=== PATIENT | male | born 1995 | race Caucasian/White ===

== ENCOUNTER 2017-01-01 05:01 | Emergency (ER) | payer BC ==
[~2017-01-01 05:01] MED LIST: BACITRACIN30 GM TOP; BENTYL10 MG PO; NO MEDICATIONS; PHENERGAN25 M1 PO; PRILOSEC20 M1 PO; ZOFRANODT PO
== END 2017-01-01 05:05 | disposition left against medical advice (07) ==
LOC: CED 05:01
DX: Z53.21 Procedure and treatment not carried out due to patient leaving prior to being seen by health care provider (principal)

== ENCOUNTER 2017-03-02 21:56 | Emergency (ER) | payer BC ==
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
== END 2017-03-02 22:33 | disposition home or self-care (01) ==
LOC: SED 21:56
DX: S62.625A Displaced fracture of middle phalanx of left ring finger, initial encounter for closed fracture (principal); F17.200 Nicotine dependence, unspecified, uncomplicated; Y04.2XXA Assault by strike against or bumped into by another person, initial encounter; Y92.9 Unspecified place or not applicable
CPT/HCPCS: 29125; 73130; 99283

== ENCOUNTER 2017-03-29 08:24 | Emergency (ER) | payer BC ==
--- NOTE | ~2017-03-29 | CR90 ---
[facility] A Service of [facility] RADIOLOGY TEXT RESULTS PATIENT: TIFFANY ROCHE LOCATION: [facility] : 93 UNIT #: [id number] AGE: [address]: Juanita Pillai MD SEX: M ORDER DR: [id number] [facility] [address] [place], [place] [address] [id number] E MR#: [id number] Acc #: [id number] NAME: TIFFANY ROCHE. : 1995 SEX: M STUDY DATE/TIME: 03/29/2017 9:27 UNIT: [facility] ROOM: STUDY DESCRIPTION: CR Elbow 2 View Lt Attending Physician: Juanita Pillai M.D. Ordering Physician: Juanita Pillai M.D. Primary Care Physician: Primary Care Physician No MEDICAL IMAGING REPORT This report is preliminary unless electronic signature is present EXAM Left [facility]. Patient fell this morning. FINDINGS AP and lateral examination of the elbow shows satisfactory articulation of the humerus with the proximal radius and ulna. There is no identifiable fracture, dislocation, joint effusion, or radiopaque foreign body in the soft tissues. IMPRESSION Normal elbow. Dictated by... Theo Carbone M.D. THIS IS AN ELECTRONICALLY VERIFIED REPORT Theo Carbone M.D. at 03/30/2017 7:26 AM ARIEL/henrietta TD: 03/30/2017 02:01 JOB #: [id number] MEDICAL IMAGING REPORT Page 1 of 1 COPY
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
--- NOTE | ~2017-03-29 | CT57 ---
[facility] A Service of [facility] RADIOLOGY TEXT RESULTS PATIENT: TIFFANY ROCHE LOCATION: [facility] : 93 UNIT #: [id number] AGE: [address]: Juanita Pillai MD SEX: M ORDER DR: [id number] [facility] [address] [place], [place] [address] [id number] E MR#: [id number] Acc #: [id number] NAME: TIFFANY ROCHE. : 1995 SEX: M STUDY DATE/TIME: 03/29/2017 9:04 UNIT: [facility] ROOM: STUDY DESCRIPTION: CT Chest Wo Cont Attending Physician: Juanita Pillai M.D. Ordering Physician: Juanita Pillai M.D. Primary Care Physician: Primary Care Physician No MEDICAL IMAGING REPORT This report is preliminary unless electronic signature is present EXAM CT scan of the chest without contrast HISTORY Fall from [facility] this morning with chest pain TECHNIQUE Axial 5 mm images were obtained through the chest without IV contrast. This CT exam was performed with one or more of the following radiation dose reduction techniques: automatic exposure control, adjustment of mA and/or kV according to patient size, and iterative reconstruction. FINDINGS The aorta is normal in size. There is no mediastinal or hilar adenopathy. The visualized thyroid gland is normal. The lungs are clear except for some small calcified granulomas in the left lung. There is no fracture visible. IMPRESSION Normal study except for small calcified granulomas left lung. No fractures are visible. Dictated by... Theo Carbone M.D. THIS IS AN ELECTRONICALLY VERIFIED REPORT Theo Carbone M.D. at 03/30/2017 7:26 AM FEL/to TD: 03/29/2017 15:43 [facility] A Service [facility] RADIOLOGY TEXT RESULTS PATIENT: TIFFANY ROCHE LOCATION: [facility] : 93 UNIT #: [id number] AGE: [address]: Juanita Pillai MD SEX: M ORDER DR: JOB #: [id number] MEDICAL IMAGING REPORT Page 1 of 1 COPY
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
--- NOTE | ~2017-03-29 | CT4 ---
[facility] A Service of [facility] RADIOLOGY TEXT RESULTS PATIENT: TIFFANY ROCHE LOCATION: [facility] : 93 UNIT #: [id number] AGE: [address]: Juanita Pillai MD SEX: M ORDER DR: [id number] [place] [id number] [place], [place] [address] [id number] E MR#: [id number] Acc #: [id number] NAME: TIFFANY ROCHE. : 1995 SEX: M STUDY DATE/TIME: 03/29/2017 9:04 UNIT: [facility] ROOM: STUDY DESCRIPTION: CT Abd and Pelv Wo Cont Attending Physician: Juanita Pillai M.D. Ordering Physician: Juanita Pillai M.D. Primary Care Physician: Primary Care Physician No MEDICAL IMAGING REPORT This report is preliminary unless electronic signature is present EXAM CT abdomen and pelvis with contrast [facility] COMPARISON 04/12/2013 TECHNIQUE Axial 5 mm images were obtained through the abdomen and pelvis without IV or oral contrast. This CT exam was performed with one or more of the following radiation dose reduction techniques: automatic exposure control, adjustment of mA and/or kV according to patient size, and iterative reconstruction. FINDINGS The lung bases are clear. The liver, gallbladder, spleen, pancreas, adrenal glands and kidneys are normal in appearance. The aorta is normal in size and there is no adenopathy. The bladder and prostate gland are normal. The bones are unremarkable. IMPRESSION Normal CT abdomen and pelvis without contrast. Dictated by... Theo Carbone M.D. THIS IS AN ELECTRONICALLY VERIFIED REPORT Theo Carbone M.D. at 03/30/2017 7:26 AM [facility] A Service [facility] RADIOLOGY TEXT RESULTS PATIENT: TIFFANY ROCHE LOCATION: [facility] : 93 UNIT #: [id number] AGE: [address]: Juanita Pillai MD SEX: M ORDER DR: Tobias TD: 03/29/2017 15:44 JOB #: [id number] MEDICAL IMAGING REPORT Page 1 of 1 COPY
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
[2017-03-29 09:07] LABS: POC - CKMB <1.0 ng/mL (0.0-7.9); POC - TROPONIN <0.05 ng/mL (<=0.05)
[2017-03-29 09:24] LABS: BASOPHIL% 0.2 % (0-2.5); EOSINOPHIL% 0.2 % (0.0-7.0); HEMATOCRIT 45.3 % (38.0-50.0); LYMPHOCYTE# 2.3 X10e3 (1.0-3.5); LYMPHOCYTE% 13.4 % (17.0-45.0); MEAN CELL VOLUME 96.8 FL (83-96); MEAN CORPUSCULAR HGB CONC 33.1 g/dL (30-36); MONOCYTE# 1.1 X10e3 (0-1.0); MONOCYTE% 6.2 % (3.0-12.0); NEUTROPHIL# 13.7 X10e3 (1.5-7.1); RED BLOOD COUNT 4.68 X10e (3.90-5.60); RED CELL DISTRIBUTION WIDTH 14.2 % (11.0-15.5); WHITE BLOOD COUNT 17.1 X10e3 (4.0-10.5)
[2017-03-29 09:27] LABS: DIFF IND YES
[2017-03-29 09:33] LABS: INR 1.1; PARTIAL THROMBOPLASTIN TIME 25.7 SECONDS (23.5-31.3); PROTHROMBIN TIME (PATIENT) 11.4 SECONDS (9.6-11.5)
[2017-03-29 10:00] LABS: ALBUMIN SERUM 4.4 g/dL (3.5-5.0); BILIRUBIN, DIRECT 0.1 mg/dL (0.0-0.2); BILIRUBIN,INDIRECT 0.6 mg/dL (0.0-0.9); BILIRUBIN,TOTAL 0.7 mg/dL (0.2-2.0); BUN/CREATININE RATIO 5.55; CREATININE SERUM 0.9 mg/dL (0.6-1.4); POTASSIUM 3.6 mmol/L (3.5-5.1); PROTEIN TOTAL SERUM 7.4 g/dL (6.0-8.3)
[2017-03-29 11:39] LABS: ANISOCYTOSIS SL; PLATELET ESTIMATE NORMAL (NORMAL); TOXIC GRANULATION SL
[2017-03-29 11:40] LABS: PLATELET COUNT 321 X10e3 (140-420)
== END 2017-03-29 11:17 | disposition home or self-care (01) ==
LOC: CED 08:24 → CFTX 09:54 → CED 11:17
PROVIDERS: Student in an Organized Health Care Education/Training Program
DX: S82.009A Unspecified fracture of unspecified patella, initial encounter for closed fracture (principal); S01.112A Laceration without foreign body of left eyelid and periocular area, initial encounter; S50.02XA Contusion of left elbow, initial encounter; F17.200 Nicotine dependence, unspecified, uncomplicated; W13.0XXA Fall from, out of or through balcony, initial encounter; Y92.009 Unspecified place in unspecified non-institutional (private) residence as the place of occurrence of the external cause; F10.129 Alcohol abuse with intoxication, unspecified
CPT/HCPCS: 12011; 29505; 36415; 70450; 70486; 71250; 72125; 73070; 73552; 73560; 74176; 80048; 80076; 82553; 84484; 85025; 85610; 85730; 96361; 96374; 96375; 99284; G0480; J2405; J3010